=== PATIENT | female | born 1950 | race Caucasian/White ===

== ENCOUNTER 2017-01-10 08:10 | Day surgery (SDC) | payer MEDICARE, BC ==
[~2017-01-10 08:10] MED LIST: CEFAZOLIN 2 GM/D5W RTU 2 GM/50 ML RTUPB IV PRN
[2017-01-10 09:09] LABS: HEMATOCRIT 35.2 % (36.0-47.0); HEMOGLOBIN 11.6 g/dL (12.0-15.5); HGB HCT DIFFERENCE -0.4; MEAN CORPUSCULAR HEMOGLOBIN 29.6 pg (27.0-33.4); MEAN CORPUSCULAR VOLUME 90 fl (80-97); RED BLOOD COUNT 3.93 10^6/uL (3.72-5.28); RED CELL DISTRIBUTION WIDTH 12.7 % (11.5-14.0); WHITE BLOOD COUNT 4.1 10^3/uL (4.0-10.5)
--- NOTE | 2017-01-10 09:35 | RADIOLOGY REPORT (SQ) ---
EXAM DESCRIPTION: CHEST SINGLE VIEW COMPLETED DATE/TIME: 01/10/2017 9:08 am REASON FOR STUDY: pre op-ASU # 9 COMPARISON: None. EXAM PARAMETERS: NUMBER OF VIEWS: One view. TECHNIQUE: Single frontal radiographic view of the chest acquired. RADIATION DOSE: NA LIMITATIONS: None. FINDINGS: LUNGS AND PLEURA: No opacities, masses or pneumothorax. No pleural effusion. MEDIASTINUM AND HILAR STRUCTURES: No masses. Contour normal. HEART AND VASCULAR STRUCTURES: Heart normal in size. Normal vasculature. BONES: No acute findings. HARDWARE: None in the chest. OTHER: No other significant finding. IMPRESSION: NO ACUTE RADIOGRAPHIC FINDING IN THE CHEST. TECHNICAL DOCUMENTATION: JOB ID: [id number]
[2017-01-10 09:40] LABS: ANION GAP 10 (5-19); BLOOD UREA NITROGEN 12 mg/dL (7-20); CALCIUM 9.1 mg/dL (8.4-10.2); CARBON DIOXIDE 27 mmol/L (22-30); CHLORIDE 102 mmol/L (98-107); CREATININE RESULT 0.73 mg/dL (0.52-1.25); GLUCOSE 87 mg/dL (75-110); POTASSIUM 4.3 mmol/L (3.6-5.0)
[2017-01-10] MEDS ORDERED: BUPIVACAINE HCL 0.5 % INJ/PF 30 ML SDV ONE (09:48)
[2017-01-10] MEDS ORDERED: FENTANYL CITRATE INJ/PF 250 MCG/5 ML AMPULE ONE (09:57)
[2017-01-10] MEDS ORDERED: MIDAZOLAM 2 MG/2 ML INJ ONE (09:57)
[2017-01-10] MEDS ORDERED: MORPHINE SULFATE 10 MG/ML INJ ONE (09:58)
[2017-01-10] MEDS ORDERED: ACETAMINOPHEN 100 ML IV ONE (09:58)
[2017-01-10] MEDS ORDERED: PROPOFOL INJ 200 MG/20 ML VIAL IV ONE (09:58)
[2017-01-10] MEDS ORDERED: CEFAZOLIN INJ 1 GM VIAL ONE (10:07)
[2017-01-10] MEDS ORDERED: DIPHENHYDRAMINE HCL 50 MG/ML VIAL IV PRN (11:08)
[2017-01-10] MEDS ORDERED: FENTANYL CITRATE INJ/PF 100 MCG/2 ML AMPUL IV PRN ×3 (11:08)
[2017-01-10] MEDS ORDERED: OXYCODONE-ACETAMINOPHEN 5-325 MG TABLET PO PRN ×2 (11:08)
[2017-01-10] MEDS ORDERED: MEPERIDINE HCL/PF INJ 25 MG/1 ML DISP.SYRIN IV PRN (11:08)
[2017-01-10] MEDS ORDERED: PROMETHAZINE HCL INJ 25 MG/1 ML VIAL IV PRN ×2 (11:08)
[2017-01-10] MEDS ORDERED: MORPHINE SULFATE 10 MG/ML INJ IV PRN ×2 (11:08→12:09)
[2017-01-10] MEDS ORDERED: HYDROCODONE/ACETAMINOPHEN 5-325 MG TABLET PO PRN (12:09)
[2017-01-10] MEDS ORDERED: ONDANSETRON HCL INJ/PF 4 MG/2 ML SDV IV PRN (12:09)
--- NOTE | 2017-01-10 12:16 | EKG REPORT ---
SEVERITY:- NORMAL ECG - SINUS RHYTHM : Confirmed by: Deana Garcia MD 10-Jan-2017 12:15:16
--- NOTE | 2017-01-10 12:38 | PDOC DISCHARGE SUMMARY ---
Discharge Summary (SDC) - Discharge Final Diagnosis: Left Hand Dupuytren's Disease Date of Surgery: 01/10/17 Discharge Date: 01/10/17 Condition: Good Treatment or Instructions: Schedule Follow Up w/ Dr. Dano Portillo @ [facility] to be seen in 10-14 days or as scheduled [place]: [place]: [place]: Keep splint clean/dry/intact, until OT Ice and elevate Stool softener of choice when on pain medication. Prescriptions: Hydrocodone/Acetaminophen [[place] 7.5-325 mg Tablet] 1 tab PO Q6 PRN #45 tablet PRN Reason: Discharge Diet: As Tolerated Respiratory Treatments at Home: Deep Breathing/Coughing Discharge Activity: No Lifting Over 10 Pounds, No Lifting/Push/Pulling Report the Following to Your Physician Immediately: Fever over 101 Degrees, Unusual Bleeding, Redness, Swelling, Warmth, Increased Soreness
--- NOTE | 2017-01-10 12:38 | Operative Report ---
Operative Report DATE OF SURGERY: 01/10/17 PREOPERATIVE DIAGNOSIS: Left Hand Dupuytrens Contracture Ring/Small Finger POSTOPERATIVE DIAGNOSIS: Same OPERATION: 1. Left Hand Partial Palmar Fasciectomy. 2. Excision Dupuytren's Cord Ring/Small Finger. 3. PIP Contracture Release Ring Finger SURGEON: LUIS QUIÑONES ANESTHESIA: GA COMPLICATIONS: None ESTIMATED BLOOD LOSS: Minimal PROCEDURE: Reason for above procedure: 66-year-old female who has a long-standing history of Dupuytren's contracture bilateral hands. She has underwent Xiaflex injection by another provider which did provide some relief but most recent injection resulted in allergic reaction and thus she will discontinue the use of Xiaflex. Her Dupuytren's contracture has now recurred and causes her difficulty with daily activities occasional discomfort when she gets it caught on something. At that point we discussed treatment options including operative versus nonoperative intervention. Patient understands given her Xiaflex injection she certainly is at high risk for recurrence, neurovascular injury and wound problems were given the amount of disability her current contractures causing the made the joint decision to proceed with operative intervention. Procedure In Detail: Patient was seen and evaluated in the preoperative holding area. The left upper extremity was initialized and marked. Patient received 2g of Ancef IV for bacterial prophylaxis. Patient was taken back to the operative room where transferred to the operative table and placed under general anesthesia. Once they were adequately anesthetized a nonsterile tourniquet was placed on the upper extremity. A surgical team debriefing was performed ensuring all instrumentation was available, the surgical procedure was discussed with possible concerns reviewed. The upper extremity was prepped with chlorhexidine and alcohol and draped in a sterile fashion. A timeout was done identifying correct patient, procedure and extremity everyone in attendance agree with this and verbalized no concerns. The extremity was exsanguinated the tourniquet was inflated to 250 mmHg. A Zo type skin incision was made beginning proximally in the palm extending past the PIP joint avoiding 90 angle incision across the flexor creases, the most proximal limb was a longitudinal allowing connection of a second incision along the small finger. Blunt dissection was performed proximally until the cord was identified. Then sharp dissection was utilized excising the proximal pretendinous cord once I reached the level of the transverse intermetacarpal ligament I transitioned to blunt dissection given the presence of a spiral cord. The ulnar digital nerve of the ring finger was identified spiraling in a radial direction and displaced superficial proximally and radially. Neurolysis of the ulnar digital nerve was performed until free of any adjacent soft tissue and retracted ulnarly. The spiral cord was then localized and excised to the level of the PIP joint. Extension of the spiral cord revealed a lateral digital sheath cord of the PIP joint once again the neurovascular bundle was identified and retracted until the lateral digital digital digital sheath cord. Patient MP joint contracture was resolved however flexion contracture of the PIP joint remained thus I turned my attention to PIP joint contracture release. The A5 misael was released and the flexor tendons retracted in a ulnar direction. The check rein ligaments were identified to their insertion point along the volar plate. The transverse arterial lateral branches were identified and coagulated bipolar cautery. I then released the check rein ligament and the accessory collateral ligaments once this was complete patient had full extension of the PIP joint however that was tethering from the flexor tendons thus I utilize C arm fluoroscopy to confirm there is no evidence of subluxation or dislocation of the PIP joint once placed in full extension. Furthermore patient's PIP joint extension contracture resolved and was passively correctable thus I do not feel patient required terminal tendon tenotomy. The wound was then irrigated with normal saline and I proceeded with contracture release with excision of the small finger. Connecting the longitudinal skin incision palmarly a second Zo type skin incision was utilized along the small finger. Once again blunt dissection was performed along the pretendinous cord which was excised. The remaining spiral cord was visualized. The neurovascular bundle radially and ulnarly were identified and retracted allowing excision of the spiral cord. Once the spiral cord was excised patient had full passive extension of the PIP and MP joints. Using the milking maneuver of the ring and small finger identified any peripheral vasculature which was coagulated with bipolar cautery. All neurovascular bundles remained patent and thus the tourniquet was deflated. The arm was elevated for 5 minutes and compression placed over the wound. 20 cc of 0.5% Marcaine without epinephrine was injected for postoperative pain control. A peripheral vasculature was once again coagulated with bipolar cautery until the wound was dry. The wound was irrigated with saline once again. Patient had good peripheral perfusion of the ring finger with normal skin turgor however with the small finger in extension it did result in some delayed capillary refill thus postoperatively patient will be splinted in slight flexion of the PIP joint of the ring finger which resolved any vascular compromise. The skin incisions were then closed with interrupted 4-0 nylon suture unfortunately the correction of the ring finger resulted in a more longitudinal wound along the MP joint however skin was closed without tension. The wound was then dressed with Xeroform 4 x 4's and a volar plaster splint maintaining full extension of the PIP joint of the ring finger with slight flexion of the small finger PIP joint leaving the DIP joint free. Sponge counts, instrument counts, needle counts counts were correct. Patient was then awoken from anesthesia. Transferred from the operating room table to the operating room stretcher. There was no intraoperative complications patient tolerated procedure well stable to PACU. Postoperative plan: Patient will follow up with occupational therapy in 48 hours and be fitted for a thermoplastic splint maintaining PIP joint extension of both the ring and small finger to patient comfort given the long contracture of the PIP and ring finger she may tolerate 10 flexion contracture better than full extension. Will begin DIP joint range of motion immediately along with edema control.
--- NOTE | 2017-01-10 12:58 | RADIOLOGY REPORT (SQ) ---
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 FLUOROSCOPY TIME: 3 seconds 1 digital radiographic image saved to PACS. TECHNIQUE: Intra-operative images acquired during surgical procedure to evaluate progress. NUMBER OF IMAGES: 1 digital radiographic image LIMITATIONS: None. FINDINGS: Intra procedural imaging and fluoroscopy for Dr. Portillo. IMPRESSION: Intra procedural imaging and fluoro COMMENT: Quality ID [id number]: Final reports for procedures using fluoroscopy that document radiation exp osure indices, or exposure time and number of fluorographic images (if radiation exposure indices are not available) Please consult full operative report of the attending physician for description of the procedure. TECHNICAL DOCUMENTATION: JOB ID: [id number] [employer]- All Rights Reserved
--- NOTE | 2017-01-10 12:58 | RADIOLOGY REPORT (SQ) ---
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 FLUOROSCOPY TIME: 3 seconds 1 digital radiographic image saved to PACS. TECHNIQUE: Intra-operative images acquired during surgical procedure to evaluate progress. NUMBER OF IMAGES: 1 digital radiographic image LIMITATIONS: None. FINDINGS: Intra procedural imaging and fluoroscopy for Dr. Portillo. IMPRESSION: Intra procedural imaging and fluoro COMMENT: Quality ID [id number]: Final reports for procedures using fluoroscopy that document radiation exp osure indices, or exposure time and number of fluorographic images (if radiation exposure indices are not available) Please consult full operative report of the attending physician for description of the procedure. TECHNICAL DOCUMENTATION: JOB ID: [id number] [employer]- All Rights Reserved
[2017-01-10] MEDS ORDERED: GLYCOPYRROLATE INJ 0.4 MG/2 ML VIAL ONE (13:54)
[2017-01-10] MEDS ORDERED: METOCLOPRAMIDE HCL INJ/PF 10 MG/2 ML SDV ONE (13:54)
[2017-01-10] MEDS ORDERED: LIDOCAINE 2% INJ-PF (20 MG/ML) 10 ML AMPUL ONE (13:54)
[2017-01-10] MEDS ORDERED: ONDANSETRON HCL INJ/PF 4 MG/2 ML SDV ONE (13:54)
[2017-01-10] MEDS ORDERED: SUCCINYLCHOLINE CHLORIDE INJ 200 MG/10 ML VIAL ONE (13:54)
[2017-01-10 14:05] VITALS: BP 118/60
== END 2017-01-10 14:15 | disposition home or self-care (01) ==
LOC: OROUT 08:10
PROVIDERS: ATTEND Orthopaedic Surgery
PROC: 0JNK0ZZ Release Left Hand Subcutaneous Tissue and Fascia, Open Approach (ICD-10-PCS; 2017-01-10)
PROC: 0JBK0ZZ Excision of Left Hand Subcutaneous Tissue and Fascia, Open Approach (ICD-10-PCS; principal; 2017-01-10 10:00)
DX: M72.0 Palmar fascial fibromatosis [Dupuytren] (principal); J44.9 Chronic obstructive pulmonary disease, unspecified; K21.9 Gastro-esophageal reflux disease without esophagitis; Z79.51 Long term (current) use of inhaled steroids; Z79.899 Other long term (current) drug therapy
CPT/HCPCS: 36415; 85027; 80048; 71010; 73140; 93005; 93010; 26123; 26125; J2250; J0690; J3010; J2765; J2270; J0330; J2405; J2704; J3490; J0131; 00810; 01810